=== PATIENT | male | born 1995 | race Caucasian/White ===

== ENCOUNTER 2024-04-09 11:46 | Emergency (ER) | payer OTHER ==
[2024-04-09 12:18] VITALS: BP 125/80; PULSE 92; RESP 20; TEMP 98.6; BMI 34.4
== END 2024-04-09 15:26 | disposition home or self-care (01) ==
LOC: JER 11:46
DX: J40 Bronchitis, not specified as acute or chronic (principal); R04.2 Hemoptysis; R09.81 Nasal congestion; R07.9 Chest pain, unspecified
CPT/HCPCS: 71046-TC-FY; 99283-25